=== PATIENT | male | born 1995 | race Caucasian/White ===

== ENCOUNTER 2016-09-27 23:36 | Emergency (ER) | payer BC ==
[2016-09-27 23:47] VITALS: BP 150/97
[2016-09-28] MEDS ORDERED: HYDROmorphone 0.5 MG/0.5 ML Syringe IVPUSH ONE ×3 (00:26→02:38)
[2016-09-28] MEDS ORDERED: Sodium Chloride 0.9% 10 ML Syringe FLUSH PRN (00:26)
[2016-09-28] MEDS ORDERED: Sodium Chloride 0.9% 1,000 ML IV SCH (00:30)
[2016-09-28] MEDS ORDERED: ceFAZolin 1 GM in Premix Bag 1 BAG IV ONE (01:13)
--- NOTE | 2016-09-28 02:44 | EDM.PDOC ---
ED HPI GENERAL MEDICAL PROBLEM - General Chief Complaint: ENT Problem Stated Complaint: sore throat Time Seen by Provider: 09/28/16 00:15 Source of Information: Reports: Patient, Family (Mother), RN Notes Reviewed - History of Present Illness INITIAL COMMENTS - FREE TEXT/NARRATIVE: 21-year-old male comes in for severe sore throat. He had onset of this severe sore throat about 5 days ago. He did have some very mild nasal congestion initially but that has cleared. He has not been coughing other than from the throat discomfort. He was seen at an ED a walk-in clinic about 4 days ago. Rapid strep was negative at that time. He then was seen at a clinic 2 days ago and once again rapid strep was negative. He states he was provided a prescription for what he believes was Augmentin 875 mg was told to hold the prescription and not start that unless his culture came back positive. His mother states that the first culture remained negative. They have not heard any followup on the second culture. Throat discomfort is so severe this evening that he's not obtaining relief from Motrin. He cannot sleep. Extremely difficult to swallow. Throat Pain Score (Numeric/FACES): 8 - Related Data Allergies Allergy/AdvReac Type Severity Reaction Status Date / Time No Known Allergies Allergy Verified 09/27/16 23:43 Home Meds: Home Meds Ibuprofen 400 mg PO ASDIRECTED PRN 09/27/16 [History] Prednisone [IMW: predniSONE] 40 mg PO DAILY 09/27/16 [History] Acetaminophen/oxyCODONE [Percocet 325-5 MG] 1 tab PO Q6H PRN #20 tablet [Rx] Past Medical History - Past Health History Medical/Surgical History: Denies Medical/Surgical History Neurological History: Reports: Seizure Social & Family History - Family History Family Medical History: Noncontributory - Tobacco Use Smoking Status *Q: Never Smoker - Recreational Drug Use Recreational Drug Use: No Recreational Drug Type: Reports: Marijuana/Hashish ED ROS ENT - Review of Systems Review Of Systems: See Below Constitutional: Denies: Fever, Chills HEENT: Reports: Throat Pain, Throat Swelling. Denies: Rhinitis, Sinus Problem Respiratory: Reports: Cough (Occasional). Denies: Shortness of Breath, Wheezing Cardiovascular: Denies: Chest Pain GI/Abdominal: Denies: Abdominal Pain, Nausea, Vomiting Musculoskeletal: Reports: No Symptoms Skin: Reports: No Symptoms Neurological: Reports: No Symptoms ED EXAM, ENT - Physical Exam Exam: See Below General Appearance: Alert, Moderate Distress Eye Exam: Bilateral Eye: PERRL Ears: Normal External Exam, Normal TMs Nose: Normal Inspection Mouth/Throat: Pharyngeal Erythema, Tonsillar Erythema. No: Tonsillar Exudates Head: No: Facial Swelling Neck: Supple, Lymphadenopathy (L) (Anterior), Lymphadenopathy (R) (Anterior) Respiratory/Chest: No Respiratory Distress, Lungs Clear, Normal Breath Sounds Cardiovascular: Regular Rate, Rhythm Extremities: Normal Inspection Neurological: Alert, Oriented Skin: Warm, Dry, Normal Color, No Rash Course - Vital Signs Last Recorded V/S: Last Vital Signs Temp 99.0 F 09/27/16 23:44 Pulse 68 09/27/16 23:44 Resp 18 09/27/16 23:44 BP 150/97 H 09/27/16 23:44 Pulse Ox 99 09/27/16 23:44 - Orders/Labs/Meds Orders: Active Orders 24 hr Category Date Time Status Peripheral IV Care [RC] . DIRECTED Care 09/28/16 00:27 Active Sodium Chloride 0.9% [Normal Saline] 1,000 ml Med 09/28/16 00:30 Active IV ONETIME Sodium Chloride 0.9% [Saline Flush] Med 09/28/16 00:26 Active 10 ml FLUSH ASDIRECTED PRN Peripheral IV Insertion Adult [OM.PC] Stat Oth 09/28/16 00:26 Ordered Medication Orders Sodium Chloride (Normal Saline) 1,000 mls @ 999 mls/hr IV ONETIME [facility] Last Admin: 09/28/16 00:35 Dose: 999 mls/hr Sodium Chloride (Saline Flush) 10 ml FLUSH ASDIRECTED PRN PRN Reason: Keep Vein Open Last Admin: 09/28/16 00:35 Dose: 10 ml Labs: Laboratory Tests 09/28/16 09/28/16 Range/Units 00:30 00:30 WBC 15.08 H (4.23-9.07) K/mm3 RBC 5.32 (4.63-6.08) M/mm3 Hgb 15.2 (13.7-17.5) gm/L Hct 43.8 (40.1-51.0) % MCV 82.3 (79.0-92.2) fl MCH 28.6 (25.7-32.2) pg MCHC 34.7 (32.2-35.5) g/dl RDW Std Deviation 37.5 (35.1-43.9) fL Plt Count 295 (163-337) K/mm3 MPV 8.1 L (9.4-12.3) fl Neut % (Auto) 77.8 H (34.0-67.9) % Lymph % (Auto) 9.9 L (21.8-53.1) % Story % (Auto) 11.5 (5.3-12.2) % Eos % (Auto) 0.3 L (0.8-7.0) Baso % (Auto) 0.2 (0.1-1.2) % Neut # (Auto) 11.72 H (1.78-5.38) K/mm3 Lymph # (Auto) 1.49 (1.32-3.57) K/mm3 Story # (Auto) 1.74 H (0.30-0.82) K/mm3 Eos # (Auto) 0.05 (0.04-0.54) K/mm3 Baso # (Auto) 0.03 (0.01-0.08) K/mm3 Manual Slide Review Abnormal smear Monoscreen Negative (NEGATIVE) Meds: Medications Generic Name Dose Route Start Last Admin Trade Name Freq PRN Reason Stop Dose Admin Sodium Chloride 1,000 mls @ 999 mls/hr 09/28/16 00:30 09/28/16 00:35 Normal Saline IV 999 mls/hr ONETIME KELLEY Administration Sodium Chloride 10 ml 09/28/16 00:26 09/28/16 00:35 Saline Flush FLUSH 10 ml ASDIRECTED PRN Administration Keep Vein Open Discontinued Medications Generic Name Dose Route Start Last Admin Trade Name Freq PRN Reason Stop Dose Admin Hydromorphone HCl 0.5 mg 09/28/16 00:26 09/28/16 00:36 Dilaudid IVPUSH 09/28/16 00:27 0.5 mg ONETIME ONE Administration Hydromorphone HCl 0.5 mg 09/28/16 01:13 09/28/16 01:19 Dilaudid IVPUSH 09/28/16 01:14 0.5 mg ONETIME ONE Administration Hydromorphone HCl 0.5 mg 09/28/16 02:38 09/28/16 02:42 Dilaudid IVPUSH 09/28/16 02:39 0.5 mg ONETIME ONE Administration Cefazolin Sodium/Dextrose 1 gm 50 mls @ 100 mls/hr 09/28/16 01:13 09/28/16 01 :21 / Premix IV 09/28/16 01:42 100 mls/hr ONETIME ONE Administration - Re-Assessments/Exams Free Text/Narrative Re-Assessment/Exam: 09/28/16 02:57 white blood count shows increase aches, decreased lymphocytes very suggestive that this is a bacterial throat infection. Have given Ancef 1 g IV, Dilaudid 0.5 mg IV x3 over time perior of About 3 hours, discharge instructions as documented Departure - Departure Time of Disposition: 02:39 Disposition: Home, Self-Care 01 Condition: fair Clinical Impression: Pharyngitis Qualifiers: Pharyngitis/tonsillitis etiology: unspecified etiology Qualified Code(s): J02.9 - Acute pharyngitis, unspecified - Discharge Information Prescriptions: Acetaminophen/oxyCODONE [Percocet 325-5 MG] 1 tab PO Q6H PRN #20 tablet PRN Reason: Pain Instructions: Pharyngitis, [id number] Referrals: Paty Daugherty DO [Primary Care Provider] - Forms: ED Department Discharge, Return to Work/School Form Additional Instructions: Rest, drink plenty of water to maintain hydration, clear liquids and soft diet as tolerated, take Augmentin twice daily until gone as previously prescribed, if the Augmentin is upsetting your stomach switch to the amoxicillin prescription that has been provided, otherwise do not fill the amoxicillin. Tylenol for mild to moderate discomfort or Percocet if needed for severe pain. Do not take Tylenol and Percocet at the same time. Followup clinic if not much better within 3-5 days as expected, return to ED as needed if symptoms worsening in any way - My Orders Last 24 Hours: My Active Orders 09/28/16 00:26 Sodium Chloride 0.9% [Saline Flush] 10 ml FLUSH ASDIRECTED PRN Peripheral IV Insertion Adult [OM.PC] Stat 09/28/16 00:27 Peripheral IV Care [RC] . DIRECTED 09/28/16 00:30 Sodium Chloride 0.9% [Normal Saline] 1,000 ml IV ONETIME - Assessment/Plan Last 24 Hours: My Active Orders 09/28/16 00:26 Sodium Chloride 0.9% [Saline Flush] 10 ml FLUSH ASDIRECTED PRN Peripheral IV Insertion Adult [OM.PC] Stat 09/28/16 00:27 Peripheral IV Care [RC] . DIRECTED 09/28/16 00:30 Sodium Chloride 0.9% [Normal Saline] 1,000 ml IV ONETIME
== END 2016-09-28 03:04 | disposition home or self-care (01) ==
LOC: JD.ED 23:36
DX: J02.9 Acute pharyngitis, unspecified (principal); Z79.899 Other long term (current) drug therapy
CPT/HCPCS: 36415; 85025; 86308; 96361; 96365; 96375; 96376; 99283; J0690; J1170; J7040; J7050; 99284